=== PATIENT | female | born 2000 | race Caucasian/White ===

== ENCOUNTER 2021-12-31 08:49 | Day surgery (SDC) | payer OTHER ==
[2021-12-31] MEDS ORDERED: Morphine 2 MG/ML VIAL ONE ×2 (08:57→13:21)
[2021-12-31] MEDS ORDERED: Ondansetron PF 4 MG/2 ML Vial ONE ×2 (08:57→10:13)
[2021-12-31] MEDS ORDERED: Bupivacaine/Epinephrine 0.25% 30 ML VIAL ONE (09:45)
[2021-12-31] MEDS ORDERED: fentaNYL Citrate/PF 100 MCG/2 ML SYRINGE ONE (09:50)
[2021-12-31] MEDS ORDERED: Sodium Chloride 0.9% 100 ML ONE (10:00)
[2021-12-31] MEDS ORDERED: Piperacillin/Tazobactam 3.375 GM VIAL ONE (10:00)
[2021-12-31] MEDS ORDERED: Rocuronium Bromide 10 MG/ML (10ML VIAL) ONE (10:13)
[2021-12-31] MEDS ORDERED: Succinylcholine 200 MG/10 ml SYRINGE FS ONE (10:13)
[2021-12-31] MEDS ORDERED: Lidocaine 1% PF 5 ML VIAL ONE (10:13)
[2021-12-31] MEDS ORDERED: PROPOFOL 200 MG/20 ML VIAL ONE (10:13)
[2021-12-31] MEDS ORDERED: Dexamethasone 20 MG/5 ML VIAL ONE (10:13)
[2021-12-31] MEDS ORDERED: Glycopyrrolate 0.2 MG/ML 5 ML SYRINGE ONE (10:13)
[2021-12-31] MEDS ORDERED: Promethazine HCl 25 MG/ML VIAL ONE (11:03)
[2021-12-31] MEDS ORDERED: Fentanyl 100 MCG/2 ML VIAL ONE (11:17)
[2021-12-31] MEDS ORDERED: HYDROcodone/Acetaminophen 5/325 mg Tablet ONE (11:54)
== END 2021-12-31 14:40 | disposition home or self-care (01) ==
LOC: SDC 08:49 → EDBD 08:49 → SDC 14:40
PROVIDERS: ATTEND Surgery
PROC: 0DTJ4ZZ Resection of Appendix, Percutaneous Endoscopic Approach (ICD-10-PCS; principal; 2021-12-31)
DX: K35.80 Unspecified acute appendicitis (principal); M19.90 Unspecified osteoarthritis, unspecified site; Z88.2 Allergy status to sulfonamides
CPT/HCPCS: 88304; A4649; C1776; J1100; J2270; J2405; J2543; J2550; J2704; J2710; J3010; J3490